=== PATIENT | female | born 1990 | race American Indian/Alaskan Native ===

== ENCOUNTER 2017-05-20 00:09 | Inpatient (IN) | payer MEDICAID ==
[2017-05-20] MEDS ORDERED: LACTATED RINGERS 1,000 ML ONE (00:47)
[2017-05-20] MEDS ORDERED: SUBLIMAZE ONE (01:01)
[2017-05-20] MEDS ORDERED: XYLOCAINE 2% INFILTRATI ONE (01:06)
[2017-05-20] MEDS ORDERED: PHENERGAN PO PRN ×2 (01:06→02:39)
[2017-05-20] MEDS ORDERED: BRETHINE SUB-Q PRN (01:06)
[2017-05-20] MEDS ORDERED: SUBLIMAZE IV PRN (01:06)
[2017-05-20] MEDS ORDERED: ZOFRAN IV PRN ×2 (01:06→02:39)
[2017-05-20] MEDS ORDERED: ePHEDrine SULFATE IV PRN ×2 (01:06→02:08)
[2017-05-20] MEDS ORDERED: MINERAL OIL PO PRN (01:06)
[2017-05-20] MEDS ORDERED: BRETHINE IVP PRN (01:06)
--- NOTE | 2017-05-20 01:06 | History and Physical Report ---
History of Present Illness Date of examination: 05/20/17 Date of admission: 05/20/17 00:52 Chief complaint: Painful contractions History of present illness: 27-year-old 002 at 38+6 weeks presented in active labor, she is a [facility] patient. care has been unremarkable per patient unfortunately I have no records at this time GBS unknown Past History Past Medical History: no pertinent history Past Surgical History: no surgical history [employer] History: herpes. denies: chlamydia, gonorrhea, hepatitis B, hepatitis C, HIV, syphilis, trichomonas Social history: single, full code. denies: smoking, alcohol abuse, prescription drug abuse, IV drug use - Obstetrical History Expected Date of Delivery: 05/28/17 Actual Gestation: 38 Week(s) 6 Day(s) : 3 Para: 2 Review of Systems Constitutional: no fever, no chills, no sweats, no chronic headaches Eyes: no blurred vision, no photophobia Cardiovascular: no chest pain, no orthopnea, no syncope, no lightheadedness, no shortness of breath, no dyspnea on exertion, no high blood pressure Respiratory: no cough, no cough with sputum, no shortness of breath, no dyspnea on exertion Gastrointestinal: abdominal pain (painful ctx's), no nausea, no vomiting Genitourinary: contractions, no vaginal bleeding, no vaginal discharge, no leakage of fluid, no genital sores - Physical Exam Cardiovascular: Regular rate, Normal S1, Normal S2 Lungs: Positive: Clear to auscultation, Normal air movement Abdomen: Positive: normal appearance, soft. Negative: distention, tenderness, guarding, rigidity Genitourinary (Female): Positive: normal external genitalia Uterus: Positive: enlarged (EFW ~ 3400). Negative: tender Adnexa: both: normal Extremities: Positive: normal - Obstetrical FHR: category 1 Cervical Dilatation: 6.5 station: -1 Results All other labs normal. Assessment and Plan A: 27-year-old 002 at 38+6 in active labor -Category 1 tracing P: -Admit -Obtain routine labs -Epidural when necessary -Anticipate normal vaginal delivery - Patient Problems (1) 38 weeks gestation of Current Visit: Yes Status: Acute (2) Active labor at term Current Visit: Yes Status: Acute
[2017-05-20 01:19] LABS: Hematocrit 28.7 % (30.3-42.9); Hemoglobin 9.9 gm/dl (10.1-14.3); Mean Corpuscular HGB Conc 34 % (30-34); Mean Corpuscular Hemoglobin 29 pg (28-32); Mean Corpuscular Volume 85 fl (79-97); Platelet Count 202 K/mm3 (140-440); Red Blood Count 3.37 M/mm3 (3.65-5.03); Red Cell Distribution Width 14.1 % (13.2-15.2); White Blood Count 8.5 K/mm3 (4.5-11.0)
[2017-05-20] MEDS ORDERED: ePHEDrine SULFATE ONE (01:38)
[2017-05-20] MEDS ORDERED: LACTATED RINGERS 1,000 ML IV SCH (02:00)
[2017-05-20] MEDS ORDERED: PITOCin/NS 20 UNIT/1000ML DRIP 20 UNITS/1,000 ML BAG IV SCH ×2 (02:00→03:00)
[2017-05-20] MEDS ORDERED: PITOCin/NS 30 UNIT/500ML 30 UNITS/500 ML BAG IV SCH ×2 (02:00)
[2017-05-20] MEDS ORDERED: NARCAN 2 MG/2 ML IV PRN (02:08)
--- NOTE | 2017-05-20 02:08 | Anesthesia Consultation ---
Anesthesia Consult and Med Hx Date of service: 05/20/17 - Airway Anesthetic Teeth Evaluation: Good ROM Head & Neck: Adequate Mental/Hyoid Distance: Adequate Mallampati Class: Class II Intubation Access Assessment: Good - Pulmonary Exam CTA: Yes - Cardiac Exam Cardiac Exam: No Murmur - Pre-Operative Health Status ASA Pre-Surgery Classification: ASA2 Proposed Anesthetic Plan: Epidural - Pulmonary Hx Asthma: No COPD: No Hx Pneumonia: No - Cardiovascular System Hx Hypertension: No - Central Nervous System Hx Seizures: No Hx Psychiatric Problems: No - Endocrine Hx Renal Disease: No Hx End Stage Renal Disease: No Hx Hypothyroidism: No Hx Hyperthyroidism: No - Hematic Hx Anemia: No Hx Sickle Cell Disease: No - Other Systems Hx Alcohol Use: No
[2017-05-20] MEDS ORDERED: METHERGINE IM ONE (02:30)
[2017-05-20] MEDS ORDERED: PHENERGAN PR PRN (02:39)
[2017-05-20] MEDS ORDERED: TUCKS PAD TP PRN (02:39)
[2017-05-20] MEDS ORDERED: DULCOLAX PR PRN (02:39)
[2017-05-20] MEDS ORDERED: LANSINOH TP PRN (02:39)
[2017-05-20] MEDS ORDERED: METHERGINE IM PRN (02:39)
[2017-05-20] MEDS ORDERED: BENADRYL PO PRN (02:39)
[2017-05-20] MEDS ORDERED: NORCO 5/325 PO PRN (02:39)
[2017-05-20] MEDS ORDERED: MILK OF MAGNESIA PO PRN (02:39)
[2017-05-20] MEDS ORDERED: TYLENOL PO PRN (02:39)
--- NOTE | 2017-05-20 02:39 | Procedure Note ---
OB Delivery Note - Delivery Date of Delivery: 05/20/17 Surgeon: SIDRA STARK Estimated blood loss: 300cc - Vaginal Delivery presentation: vertex Delivery position: OP Intrapartum events: none Delivery induction: none Delivery augmentation: rupture of membranes Delivery monitor: external FHT, external uterine Route of delivery: Delivery placenta: spontaneous Delivery cord: nuchal cord (Loose x 1), 3 umbilical vessels Episiotomy: none Delivery laceration: none Anesthesia: epidural - A at 1 minute: 8 at 5 minutes: 9 Infant Gender: Male (time of delivery was 02:25 AM, infant weight was 6 lbs. 14 oz. or 3128 g)
[2017-05-20] MEDS ORDERED: SODIUM CHLORIDE FLUSH SYRINGE 10 ML IV NR (03:00)
[2017-05-20] MEDS ORDERED: fentaNYL-BUPIV 2 MCG/ML-0.125% 200 MCG/100 ML BAG EPIDURAL SCH (03:00)
[2017-05-20] MEDS: MOTRIN PO SCH ×3 (05:49→18:25)
[2017-05-20] MEDS: COLACE PO SCH ×2 (10:42→22:20)
[2017-05-20] MEDS: PRENATAL VITAMIN PO SCH (10:42)
[2017-05-20] MEDS: FEOSOL PO SCH ×2 (10:42→22:20)
[2017-05-20] MEDS: SENOKOT S PO SCH (10:42)
[2017-05-20 15:02] LABS: Hematocrit 26.2 % (30.3-42.9); Hemoglobin 8.9 gm/dl (10.1-14.3)
[2017-05-21] MEDS: MOTRIN PO SCH ×4 (01:01→18:17)
[2017-05-21] MEDS: SENOKOT S PO SCH (05:17)
[2017-05-21] MEDS ORDERED: BOOSTRIX IM ONE (06:00)
[2017-05-21] MEDS: FEOSOL PO SCH ×2 (10:25→22:18)
[2017-05-21] MEDS: PRENATAL VITAMIN PO SCH (10:25)
--- NOTE | 2017-05-21 10:49 | Progress Note ---
Subjective Date of service: 05/21/17 Interval history: 1st day after normal vaginal delivery Patient is in the bed, comfortable. Pain is well controlled with pain meds. Ambulated well. No residual neurological deficit. No anesthesia complications Objective - Constitutional Vitals: Vital Signs - 12hr 05/21/17 05/21/17 05/21/17 00:40 08:35 10:24 Temperature 97.8 F 97.9 F Pulse Rate 73 67 Respiratory 20 18 20 Rate Blood Pressure 94/52 87/50 - Labs CBC & Chem 7: 05/20/17 14:30 Labs: Abnormal lab results 05/20/17 Range/Units 14:30 Hgb 8.9 L (10.1-14.3) gm/dl Hct 26.2 L (30.3-42.9) %
--- NOTE | 2017-05-21 11:42 | Progress Note ---
Assessment and Plan - Patient Problems (1) (normal spontaneous vaginal delivery) Onset Date: 05/21/17 Current Visit: Yes Status: Resolved Plan to address problem: A: S/P - PPD #1 Doing well Asymptomatic anemia - stable P: May go home tomorrow (2) Anemia Onset Date: 05/21/17 Current Visit: Yes Status: Chronic Qualifiers: Anemia type: iron deficiency Iron deficiency anemia type: I Vitamin B12 deficiency anemia type: V Folate deficiency anemia type: F Bone marrow failure anemia type: B Hemolytic anemia type: H Other causes of anemia: O Chronic kidney disease stage: C Subjective - Subjective Date of service: 05/21/17 Principal diagnosis: s/p - PPD#1 Interval history: Pt is feeling well without complaints. Bleeding improved. Patient reports: appetite normal, voiding normally, pain well controlled, flatus , ambulating normally [place]: doing well, nursing well Objective - Vital Signs Latest vital signs: Vital Signs Temp Pulse Resp BP 05/21/17 10:24 20 05/21/17 08:35 97.9 F 67 18 87/50 05/21/17 00:40 97.8 F 73 20 94/52 05/20/17 18:25 18 05/20/17 16:35 98.4 F 70 17 91/55 05/20/17 13:33 18 05/20/17 12:20 98.2 F 77 18 106/59 Intake and Output 05/20/17 05/21/17 05/21/17 22:59 06:59 14:59 Intake Total 360 240 240 Balance 360 240 240 Intake: Oral 360 240 240 Other: Total, Intake Amount 240 240 240 # Voids Void 1 1 1 - Exam Breasts: Present: deferred Cardiovascular: Present: Regular rate Lungs: Present: Clear to auscultation Abdomen: Present: normal appearance, soft Uterus: Present: normal, firm, fundal height below umbilicus Extremities: Present: normal - Labs Labs: Abnormal lab results 05/20/17 Range/Units 14:30 Hgb 8.9 L (10.1-14.3) gm/dl Hct 26.2 L (30.3-42.9) % Laboratory Tests 05/20/17 05/20/17 05/20/17 00:55 00:55 00:55 WBC 8.5 RBC 3.37 L Hgb 9.9 L Hct 28.7 L MCV 85 MCH 29 MCHC 34 RDW 14.1 Plt Count 202 RPR Nonreactive Blood Type B POSITIVE Antibody Screen TNR JUD Antibody Screen Negative 05/20/17 14:30 WBC RBC Hgb 8.9 L Hct 26.2 L MCV MCH MCHC RDW Plt Count RPR Blood Type Antibody Screen JUD Antibody Screen
--- NOTE | 2017-05-21 11:44 | Discharge Summary ---
Providers - Providers Date of Admission: 05/20/17 00:52 Date of discharge: 05/22/17 Attending physician: SIDRA STARK Primary care physician: SIDRA STARK Hospitalization Reason for admission: active labor, IUP at term Delivery: Episiotomy: none Laceration: none Other procedures: none complications: none Discharge diagnosis: IUP at term delivered [place] baby: male Hospital course: Unremarkable. Condition at discharge: Good Disposition: DC-01 TO HOME OR SELFCARE - Discharge Diagnoses (1) (normal spontaneous vaginal delivery) Status: Resolved (2) Anemia Status: Chronic Qualifiers: Anemia type: iron deficiency Iron deficiency anemia type: I Vitamin B12 deficiency anemia type: V Folate deficiency anemia type: F Bone marrow failure anemia type: B Hemolytic anemia type: H Other causes of anemia: O Chronic kidney disease stage: C Plan - Discharge Medications Prescriptions: Ibuprofen [Motrin 600 MG tab] 600 mg PO Q8H PRN #30 tablet PRN Reason: Pain Multivitamin with Iron [Multivitamins with Iron] 1 each PO DAILY #30 tablet - Provider Discharge Summary Activity: routine, no sex for 6 weeks, no heavy lifting 4 weeks, no strenuous exercise Diet: routine Instructions: routine Additional instructions: [] Smoking cessation referral if applicable(refer to patient education folder for contact #) [] Refer to [employer] Booklet Call your doctor immediately for: * Fever > 100.5 * Heavy vaginal bleeding ( >1 pad per hour) * Severe persistent headache * Shortness of breath * Reddened, hot, painful area to leg or breast * Drainage or odor from incision. * Keep incision clean and dry at all times and follow doctor's instructions regarding bathing/showering - Follow up plan Follow up: SIDRA STARK MD [Primary Care Provider] - 6 Weeks
[2017-05-21] MEDS: COLACE PO SCH (22:19)
[2017-05-22] MEDS: MOTRIN PO SCH ×2 (00:15→05:55)
[2017-05-22] MEDS: SENOKOT S PO SCH (05:55)
[2017-05-22 11:20] VITALS: BP 119/54
== END 2017-05-22 09:40 | disposition home or self-care (01) | DRG 775 ==
LOC: TRG 00:09 → LD 00:52 → OB 04:25
PROVIDERS: ADMIT Obstetrics & Gynecology Gynecology; ATTEND Obstetrics & Gynecology Gynecology
PROC: 10E0XZZ Delivery of Products of Conception, External Approach (ICD-10-PCS; principal; 2017-05-20)
PROC: 3E0R3CZ (ICD-10-PCS; 2017-05-20)
PROC: 00HU33Z Insertion of Infusion Device into Spinal Canal, Percutaneous Approach (ICD-10-PCS; 2017-05-20)
DX: O69.81X0 Labor and delivery complicated by cord around neck, without compression, not applicable or unspecified (principal); Z3A.38 38 weeks gestation of pregnancy; Z37.0 Single live birth; O99.02 Anemia complicating childbirth; D50.9 Iron deficiency anemia, unspecified
CPT/HCPCS: 36415; 85014; 85018; 85027; 86592; 86850; 86900; 86901; 90471; 90715; 99211; A6250; G0463; J2210; J2590; J3010; J7120